=== PATIENT | female | born 1980 | race African-American/Black ===

== ENCOUNTER 2017-09-27 17:33 | Emergency (ER) | payer MEDICARE, MEDICAID ==
[~2017-09-27] VITALS: Ht 160 cm; Wt 49.9 kg
[~2017-09-27 17:33] MED LIST: ACETAMINOPHEN-1 EAC1 ORAL; ATIVAN1 MG ORAL; BACLOFEN10 MG ORAL; BUSPIRONE HCL15 MG ORAL; ESCITALOPRAM OX20 MG ORAL; KEPPRA500 MG ORAL; LEXAPRO20 MG ORAL; LYRICA25 MG ORAL; MAGNESIUM OXID400 M1 ORAL; METFORMIN HCL500 M1 ORAL; SERTRALINE HCL25 MG ORAL; VIMPAT200 MG PO; VITAMIN B-2100 MG PO; ZONEGRAN100 MG ORAL
[2017-09-27 17:50] VITALS: BP 112/66
[2017-09-27] MEDS ORDERED: Albuterol/Ipratropium 3ml neb HHN ONE (18:30)
[2017-09-27] MEDS ORDERED: LORazepam Inj 2mg/ml 1ml IV ONE (18:30)
[2017-09-27 18:31] LABS: BASOPHILS % (AUTO) 0.9 % (0.0-2.0); EOSINOPHILS % (AUTO) 0.9 % (0.0-3.0); HEMATOCRIT 42.4 % (37.0-47.0); HEMOGLOBIN 13.9 G/DL (12.0-16.0); LYMPHOCYTES % (AUTO) 37.5 % (20.0-45.0); MEAN CORPUSCULAR VOLUME 92 FL (80-99); MONOCYTES % (AUTO) 7.7 % (1.0-10.0); PLATELET COUNT 313 K/UL (150-450); RED BLOOD COUNT 4.62 M/UL (4.20-5.40); RED CELL DISTRIBUTION WIDTH 11.5 % (11.6-14.8); WHITE BLOOD COUNT 10.9 K/UL (4.8-10.8)
[2017-09-27] MEDS ORDERED: Tubing IV Cassette IV ONE (18:39)
[2017-09-27 18:40] LABS: ANION GAP 16 mmol/L (5-15); BLOOD UREA NITROGEN 10 mg/dL (7-18); CALCIUM 9.5 MG/DL (8.5-10.1); CARBON DIOXIDE 22 MMOL/L (21-32); CHLORIDE 105 MMOL/L (98-107); CREATININE 1.2 MG/DL (0.55-1.30); POTASSIUM 3.6 MMOL/L (3.5-5.1); SODIUM 143 MMOL/L (136-145)
[2017-09-27 18:45] LABS: ALANINE AMINOTRANSFERASE 14 U/L (12-78); ALBUMIN 3.8 G/DL (3.4-5.0); ALKALINE PHOSPHATASE 68 U/L (46-116); ASPARTATE AMINO TRANSFERASE 10 U/L (15-37); BILIRUBIN,TOTAL 0.3 MG/DL (0.2-1.0)
[2017-09-27 19:05] VITALS: BP 120/68
[2017-09-27] MEDS ORDERED: VIMPAT50 MG PO (19:07)
[2017-09-27] MEDS ORDERED: OMEGA 3 1,0001 EACH PO (19:08)
[2017-09-27] MEDS ORDERED: APTIOM200 MG PO (19:10)
[2017-09-27] MEDS ORDERED: APTIOM400 MG PO (19:10)
[2017-09-27] MEDS ORDERED: GLIPIZIDE5 MG ORAL (19:12)
[2017-09-27] MEDS ORDERED: BENAZEPRIL HCL5 MG ORAL (19:13)
[2017-09-27] MEDS ORDERED: ARTIFICIAL TEAR15 M2 OP (19:16)
[2017-09-27] MEDS ORDERED: ATIVAN1 MG ORAL ×2 (19:19→20:29)
[2017-09-27] MEDS ORDERED: ADULT WAL-100 MG/5 M ORAL (20:29)
[2017-09-27 20:31] LABS: APPEARANCE,URINE SLIGHTLY CLOUDY; BILIRUBIN, URINE NEGATIVE (NEGATIVE); COLOR,URINE PALE YELLOW; GLUCOSE, URINE (UA) NEGATIVE (NEGATIVE); KETONES,URINE 1+ (NEGATIVE); LEUKOCYTE ESTERASE ,URINE 3+ (NEGATIVE); NITRITE,URINE NEGATIVE (NEGATIVE); PH,URINE 5 (4.5-8.0); PROTEIN,URINE 2+ (NEGATIVE); UROBILINOGEN,URINE NORMAL MG/DL (0.0-1.0)
[2017-09-27 21:07] VITALS: BP_SYST 113; BP_SYST 120; BP_DIAS 68; BP_DIAS 69
--- NOTE | 2017-09-28 13:05 | Emergency Room Report ---
History of Present Illness General Chief Complaint: Upper Respiratory Illness Source: Patient, Medical Record Present Illness HPI Patient's a 37-year-old female who presented after increased nasal congestion cough. The patient gradual onset of symptoms over the past few days. Patient had been taking [id number] cough medications. Patient prior history of seizure disorder. Patient was noted to have a nonproductive cough. She had been taking Vimpat for seizure. The patient's mother was also sick with similar illness. Allergies: Coded Allergies: No Known Allergies (Unverified , 11/29/14) Patient History Past Medical History: seizures Last Menstrual Period: on depo shot Reviewed Nursing Documentation: PMH: Agreed, PSxH: Agreed Nursing Documentation-PMH Past Medical History: No History, Except For Hx Pacemaker: Yes - FOR SEIZURE Hx Diabetes: Yes Hx Seizures: Yes Review of Systems All Other Systems: negative except mentioned in HPI Physical Exam Vital Signs Date Time Temp Pulse Resp B/P (MAP) Pulse Ox O2 Delivery O2 Flow Rate FiO2 09/27/17 17:50 98.1 101 18 112/66 97 Room Air Sp02 EP Interpretation: reviewed, normal General Appearance: normal inspection, well appearing, no apparent distress, alert, GCS 15 Head: atraumatic ENT: normal ENT inspection, hearing grossly normal, normal voice Neck: normal inspection, full range of motion, supple, no bony tend Respiratory: normal inspection, lungs clear, normal breath sounds, no respiratory distress, no retraction, no wheezing Cardiovascular #1: regular rate, rhythm, no edema Gastrointestinal: normal inspection, normal bowel sounds, non tender, soft, no guarding, no hernia Genitourinary: no CVA tenderness Musculoskeletal: normal inspection, back normal, normal range of motion Neurologic: normal inspection, alert, oriented x3, responsive, inlayer III-XII nml as tested, speech normal Psychiatric: normal inspection, judgement/insight normal, mood/affect normal Skin: normal inspection, normal color, no rash Medical Decision Making Diagnostic Impression: Primary Impression: Seizure disorder Additional Impression: Upper respiratory infection ER Course Patient present for cough. Differential diagnosis included but was not limited to bronchitis, pneumonia, pulmonary embolism, pericarditis, asthma, foreign body. Patient presented for cough however during the initial evaluation she began having a tonic-clonic seizure. Patient was given IV Ativan. The patient notes history of seizure disorder. Laboratory testing was ordered. Patient was given IV fluids. The patient improvement in her mental status after postictal time. The patient is given prescription for cough medication to laboratory studies were unremarkable . The patient is advised to follow up with primary care doctor in 1-2 days. Patient is advised to return if any worsening condition or if any changes in status that are concerning. This report is dictated with [employer] biomass power plant superintendent software which may occasionally lead to discrepancies related to use of this software. Labs Test 09/27/17 18:10 09/27/17 20:10 White Blood Count 10.9 K/UL (4.8-10.8) Red Blood Count 4.62 M/UL (4.20-5.40) Hemoglobin 13.9 G/DL (12.0-16.0) Hematocrit 42.4 % (37.0-47.0) Mean Corpuscular Volume 92 FL (80-99) Mean Corpuscular Hemoglobin 30.0 PG (27.0-31.0) Mean Corpuscular Hemoglobin Concent 32.8 G/DL (32.0-36.0) Red Cell Distribution Width 11.5 % (11.6-14.8) Platelet Count 313 K/UL (150-450) Mean Platelet Volume 5.7 FL (6.5-10.1) Neutrophils (%) (Auto) 53.0 % (45.0-75.0) Lymphocytes (%) (Auto) 37.5 % (20.0-45.0) Monocytes (%) (Auto) 7.7 % (1.0-10.0) Eosinophils (%) (Auto) 0.9 % (0.0-3.0) Basophils (%) (Auto) 0.9 % (0.0-2.0) Sodium Level 143 MMOL/L (136-145) Potassium Level 3.6 MMOL/L (3.5-5.1) Chloride Level 105 MMOL/L (98-107) Carbon Dioxide Level 22 MMOL/L (21-32) Anion Gap 16 mmol/L (5-15) Blood Urea Nitrogen 10 mg/dL (7-18) Creatinine 1.2 MG/DL (0.55-1.30) Estimat Glomerular Filtration Rate > 60 mL/min (>60) Glucose Level 144 MG/DL (74-106) Calcium Level 9.5 MG/DL (8.5-10.1) Total Bilirubin 0.3 MG/DL (0.2-1.0) Aspartate Amino Transf (AST/SGOT) 10 U/L (15-37) Alanine Aminotransferase (ALT/SGPT) 14 U/L (12-78) Alkaline Phosphatase 68 U/L (46-116) Total Protein 7.6 G/DL (6.4-8.2) Albumin 3.8 G/DL (3.4-5.0) Globulin 3.8 g/dL Albumin/Globulin Ratio 1.0 (1.0-2.7) Urine Color Pale yellow Urine Appearance Slightly cloudy Urine pH 5 (4.5-8.0) Urine Specific [place] 1.025 (1.005-1.035) Urine Protein 2+ (NEGATIVE) Urine Glucose (UA) Negative (NEGATIVE) Urine Ketones 1+ (NEGATIVE) Urine Occult Blood Negative (NEGATIVE) Urine Nitrite Negative (NEGATIVE) Urine Bilirubin Negative (NEGATIVE) Urine Urobilinogen Normal MG/DL (0.0-1.0) Urine Leukocyte Esterase 3+ (NEGATIVE) Urine RBC 10-15 /HPF (0 - 2) Urine WBC 5-10 /HPF (0 - 2) Urine Squamous Epithelial Cells Many /LPF (NONE/OCC) Urine Bacteria Moderate /HPF (NONE) Urine HCG, Qualitative Negative Last Vital Signs Date Time Temp Pulse Resp B/P (MAP) Pulse Ox O2 Delivery O2 Flow Rate FiO2 09/27/17 21:07 98.1 101 18 120/68 100 Room Air 110 Status: improved Disposition: HOME, SELF-CARE Condition: Stable Scripts Lorazepam* (ATIVAN*) 1 Mg Tablet 1 MG ORAL BEDTIME, #10 TAB Prov: Alok Carballo 09/27/17 Guaifenesin* (ADULT WAL-TUSSIN*) 100 Mg/5 Ml Liquid 5 ML ORAL Q4H, #120 ML Prov: Alok Carballo 09/27/17 Referrals: NON PHYSICIAN (PCP) Patient Instructions: Upper Respiratory Infection, Adult, Seizure, Adult Alok Carballo Sep 28, 2017 13:05
== END 2017-09-27 21:11 | disposition home or self-care (01) ==
LOC: EMR 18:10
DX: J06.9 Acute upper respiratory infection, unspecified (principal); G40.909 Epilepsy, unspecified, not intractable, without status epilepticus; E11.9 Type 2 diabetes mellitus without complications
CPT/HCPCS: 36415; 80053; 81003; 81025; 82962; 85025; 87086; 94640; 94664; 96361; 96374; 99284; J7620

== ENCOUNTER 2018-04-23 11:08 | Emergency (ER) | payer MEDICARE, MEDICAID ==
[~2018-04-23] VITALS: Ht 162.6 cm; Wt 51.7 kg
[~2018-04-23 11:08] MED LIST changes: +ADULT WAL-100 MG/5 M ORAL; +APTIOM200 MG PO; +APTIOM400 MG PO; +ARTIFICIAL TEAR15 M2 OP; +BENAZEPRIL HCL5 MG ORAL; +GLIPIZIDE5 MG ORAL; +OMEGA 3 1,0001 EACH PO; +VIMPAT50 MG PO
[2018-04-23] MEDS ORDERED: BENAZEPRIL HCL10 MG ORAL (11:19)
--- NOTE | 2018-04-23 11:44 | Emergency Room Report ---
History of Present Illness General Chief Complaint: Upper Extremity Injury Source: Patient, Medical Record Present Illness HPI Patient present with complaints of pain to the left side of her neck and trapezius area with some radiation to the upper arm Patient had a seizure that was witnessed by family this happened 3 days ago Since and the patient was having pain to the left side of her trapezius and neck area And presents for further evaluation Reports that she had a heating pad on her left upper arm which led to an injury secondarily as well Denies any weakness with her left hand nitrocellulose maker Denies any chest pain or shortness of breath Allergies: Coded Allergies: No Known Allergies (Unverified , 11/29/14) Patient History Past Medical History: see triage record Pertinent Family History: none Last Menstrual Period: Depo shot Reviewed Nursing Documentation: PMH: Agreed; PSxH: Agreed Nursing Documentation-PMH Past Medical History: No History, Except For Hx Cardiac Problems: No Hx Hypertension: No Hx Pacemaker: Yes Hx Asthma: No Hx COPD: No Hx Diabetes: Yes Hx Cancer: No Hx Gastrointestinal Problems: No Hx Dialysis: No History Of Psychiatric Problem: No Hx Neurological Problems: No Hx Cerebrovascular Accident: No Hx Seizures: Yes Review of Systems All Other Systems: negative except mentioned in HPI Physical Exam Vital Signs Date Time Temp Pulse Resp B/P (MAP) Pulse Ox O2 Delivery O2 Flow Rate FiO2 04/23/18 11:13 98.4 79 14 108/74 95 Room Air 98.4 Sp02 EP Interpretation: reviewed, normal General Appearance: well appearing, no apparent distress Head: normocephalic, atraumatic Eyes: bilateral eye PERRL, bilateral eye EOMI ENT: hearing grossly normal, normal pharynx, TMs + canals normal, uvula midline Neck: full range of motion, supple, no meningismus, no bony tend - However patient did have some increased discomfort paracervical C3-4-5 on the left side , the trapezius was also mildly uncomfortable on mid point palpation, other - Cord palpated left anterior neck area into the clavicular region, likely from indwelling catheter Respiratory: lungs clear, normal breath sounds, no rhonchi, no respiratory distress, no retraction, no accessory muscle use Cardiovascular #1: normal peripheral pulses, regular rate, rhythm, no edema, no gallop, no JVD, no murmur Gastrointestinal: normal bowel sounds, non tender, soft, no mass, no organomegaly, non-distended, no guarding, no hernia, no pulsatile mass, no rebound Genitourinary: no CVA tenderness Musculoskeletal: other - As noted on the left trapezius region Neurologic: oriented x3, responsive, drying rack changer III-XII nml as tested, motor strength/ tone normal, sensory intact Psychiatric: mood/affect normal Skin: other - There was a nonspecific rash involving the left upper arm, patient and family reported that happened after placing heat pad on it from the pain Lymphatic: normal inspection, no adenopathy Medical Decision Making Diagnostic Impression: Primary Impression: Acute neck sprain ER Course Given the patient's reported trauma essentially seizure activity causing injury to the left side of the neck Imaging studies were obtained Patient was provided with pain medication Continues to feel better Patient does not show any signs of focal weakness And is otherwise stable for close outpatient follow-up Chest X-Ray Diagnostic Results Chest X-Ray Diagnostic Results : Chest X-Ray Ordered: Yes # of Views/Limited/Complete: 1 View Indication: Chest Pain EP Interpretation: Yes Interpretation: no consolidation, no effusion, no pneumothorax Impression: No acute disease Electronically Signed by: Ray Workman DO CT/MRI/US Diagnostic Results CT/MRI/US Diagnostic Results : Impression CT C-spine no acute disease Last Vital Signs Date Time Temp Pulse Resp B/P (MAP) Pulse Ox O2 Delivery O2 Flow Rate FiO2 04/23/18 11:13 98.4 79 14 108/74 95 Room Air 98.4 Status: improved Disposition: HOME, SELF-CARE Condition: Improved Scripts Methocarbamol* (ROBAXIN-750*) 750 Mg Tablet 750 MG PO TID, #21 TAB 0 Refills Prov: Ray Workman DO 04/23/18 Ibuprofen* (MOTRIN*) 600 Mg Tablet 600 MG ORAL Q8H PRN for For Pain, #20 TAB 0 Refills Prov: Ray Workman DO 04/23/18 Referrals: NOT CHOSEN IPA/MD,REFERRING (PCP) Additional Instructions: Patient is provided with the discharge instructions notified to follow up with primary doctor in the next 2-3 days otherwise return to the er with any worsening symptoms. Please note that this report is being documented using [employer] technology. This can lead to erroneous entry secondary to incorrect interpretation by the dictating instrument. Ray Workman DO Apr 23, 2018 11:44
--- NOTE | 2018-04-23 12:20 | Diagnostic Imaging Report ---
EXAM: XR Chest, 1 View CLINICAL HISTORY: PAIN TECHNIQUE: Frontal view of the chest. COMPARISON: No relevant prior studies available. FINDINGS: Lungs: No consolidation. Pleural space: Unremarkable. No pneumothorax. Heart: Unremarkable. No cardiomegaly. Mediastinum: Unremarkable. Bones/joints: No acute fracture. Tubes, lines and devices: Neurostimulator device overlying the left chest with lead extending to the left side of the neck. IMPRESSION: No acute findings.
--- NOTE | 2018-04-23 12:24 | Diagnostic Imaging Report ---
EXAM: CT Cervical Spine Without Intravenous Contrast CLINICAL HISTORY: TRAUMA TECHNIQUE: Axial computed tomography images of the cervical spine without intravenous contrast. CTDI is 0.25 + 10 mGy and DLP is 204 mGy-cm. One or more of the following dose reduction techniques were used: automated exposure control, adjustment of the mA and/or kV according to patient size, use of iterative reconstruction technique. COMPARISON: No relevant prior studies available. FINDINGS: Vertebrae: No fracture or malalignment. Discs/spinal canal/neural foramina: No acute process. Soft tissues: Unremarkable. Thyroid: Heterogeneous thyroid gland with small low attenuation foci, largest measuring approximately 6 mm. Tubes, lines and devices: Neurostimulator lead on the left side. IMPRESSION: No fracture or malalignment.
[2018-04-23] MEDS ORDERED: Methocarbamol 750mg tab ORAL ONE (12:30)
[2018-04-23] MEDS: Ketorolac 60mg Inj IM ONE ×2 (12:44→12:51)
[2018-04-23] MEDS ORDERED: IBUPROFEN600 MG ORAL (13:14)
[2018-04-23] MEDS ORDERED: ROBAXIN-750750 MG PO (13:14)
[2018-04-23 13:23] VITALS: BP 102/64
== END 2018-04-23 13:26 | disposition home or self-care (01) ==
LOC: EMR 11:34
DX: S13.9XXA Sprain of joints and ligaments of unspecified parts of neck, initial encounter (principal); X58.XXXA Exposure to other specified factors, initial encounter; Y93.89 Activity, other specified; Y92.9 Unspecified place or not applicable; E11.9 Type 2 diabetes mellitus without complications; G40.909 Epilepsy, unspecified, not intractable, without status epilepticus; Z95.0 Presence of cardiac pacemaker
CPT/HCPCS: 71045; 72125; 96372; 99284

== ENCOUNTER 2018-10-30 11:36 | Emergency (ER) | payer MEDICARE, MEDICAID ==
[~2018-10-30] VITALS: Ht 162.6 cm; Wt 49.9 kg
[~2018-10-30 11:36] MED LIST changes: +BENAZEPRIL HCL10 MG ORAL; +IBUPROFEN600 MG ORAL; +ROBAXIN-750750 MG PO
[2018-10-30 11:53] VITALS: BP 141/85
[2018-10-30] MEDS ORDERED: Ketorolac 30mg Inj IM ONE (12:15)
[2018-10-30] MEDS ORDERED: Tylenol #3 tab (300mg/30mg) ORAL ONE (12:15)
[2018-10-30] MEDS ORDERED: IBUPROFEN600 MG ORAL (12:17)
[2018-10-30] MEDS ORDERED: ACETAMINOPHEN-1 EAC1 ORAL (12:17)
--- NOTE | 2018-10-30 12:22 | Emergency Room Report ---
History of Present Illness General Chief Complaint: Pain Source: Patient Present Illness HPI The patient is a 38 old female presenting for left sided jaw pain. She states that this pain began after experiencing a seizure one week prior. She believes that she was clenching her jaw at the time. Pain has been continuous and is described as an 8 out of 10 dull ache. Pain does not radiate. Worse with touch and movement. She has not tried any pain medications yet for this. She states that she is able to chew. She denies any other symptoms including nausea , vomiting, fever, chills, sore throat, cough, ear pain, chest pain, shortness of breath Allergies: Coded Allergies: No Known Allergies (Unverified , 11/29/14) Patient History Past Medical History: see triage record, seizures Pertinent Family History: none Now: No - depo shot Reviewed Nursing Documentation: PMH: Agreed; PSxH: Agreed Nursing Documentation-PMH Past Medical History: No History, Except For Hx Cardiac Problems: No Hx Hypertension: No Hx Pacemaker: Yes Hx Asthma: No Hx COPD: No Hx Diabetes: Yes Hx Cancer: No Hx Gastrointestinal Problems: No Hx Dialysis: No Hx Neurological Problems: No Hx Cerebrovascular Accident: No Hx Seizures: Yes Review of Systems All Other Systems: negative except mentioned in HPI Physical Exam Vital Signs Date Time Temp Pulse Resp B/P (MAP) Pulse Ox O2 Delivery O2 Flow Rate FiO2 10/30/18 11:43 98.4 75 17 141/85 99 Room Air Sp02 EP Interpretation: reviewed, normal General Appearance: no apparent distress, alert, GCS 15, non-toxic Head: normocephalic, atraumatic Eyes: bilateral eye normal inspection, bilateral eye PERRL ENT: hearing grossly normal, normal pharynx, no angioedema, normal voice, uvula midline, other - TTP over the L TMJ. No deformity. Normal bite. Teeth aligned Neck: full range of motion, supple/symm/no masses, other - Scar to L side Musculoskeletal: back normal, gait/station normal, normal range of motion, non- tender Neurologic: alert, oriented x3, responsive, motor strength/tone normal, sensory intact, speech normal Psychiatric: judgement/insight normal, memory normal, mood/affect normal, no suicidal/homicidal ideation Skin: normal color, no rash, warm/dry, well hydrated Medical Decision Making PA Attestation Dr. Workman is my supervising physician. Patient management was discussed with my supervising physician Diagnostic Impression: Primary Impression: Temporomandibular joint (TMJ) pain Qualified Codes: M26.622 - Arthralgia of left temporomandibular joint ER Course The patient is a 38 old female presenting for left sided jaw pain. Differential diagnosis considered but not limited to: Muscle strain, TMJ syndrome, fracture, arthritis, among others PE: Afebrile. NAD TTP over the TMJ. No deformity. Mandible is aligned. Normal bite. Patient able to open mouth to 3 fingers in height. Patient is given IM Toradol and Tylenol 3 She is discharged with prescription for Motrin and Tylenol 3. She is given information for dentist. She is told to follow-up within a week. ER precautions given Last Vital Signs Date Time Temp Pulse Resp B/P (MAP) Pulse Ox O2 Delivery O2 Flow Rate FiO2 10/30/18 11:53 98.4 17 141/85 99 Room Air 10/30/18 11:43 75 Status: improved Disposition: HOME, SELF-CARE Condition: Improved Scripts Acetaminophen With Codeine (T#3) (TYLENOL #3 TAB*) Y Tab 1 TAB ORAL Q6HR PRN for For Pain, #10 TAB Prov: TERZIAN,NIURKA P.A. 10/30/18 Ibuprofen* (MOTRIN*) 600 Mg Tablet 600 MG ORAL Q8H PRN for For Pain, #30 TAB 0 Refills Prov: TERZIAN,NIUKRA P.A. 10/30/18 Referrals: [facility](age 2-12) - Orthodontic Clinic - Hours: Wed,Wed,, 8:15am and 1pm (new patient screening), Tues. 1pm. Emergency clinic Wednesday - Wednesday 8:30am and 1pm, Tues. 1pm. *Call to check if clinic is open; No appointment necessary for the first visit ( new patient screening), Arrive 15-30 minutes early as it is first come, first serve. [facility] INFO: New Patient Screening: Wed- 8am-1pm Wed- 9am -5pm and Wed 2pm-5pm Patient Instructions: Seizure, Adult, Temporomandibular Joint Syndrome Additional Instructions: I discussed my findings with the patient. All questions and concerns have been answered. Treatment and medication compliance have been addressed. I advised the patient that they need to follow up with both primary doctor and dentist within one week. Return to ER if symptoms worsen, new symptoms arise, or if needed for any reason. Patient verbalized understanding of discharge instructions. NIURKA DIAZ Oct 30, 2018 12:22
--- NOTE | 2018-10-30 12:25 | NUR ---
ED Nurse Note: Pt was seen due to jaw pain. Pt cleared by health care provider for discharge. DC instructions/prescription was given and explained to pt and verbalized understanding of teachings. All medical educator such as ID band removed. Pt is AAO x4, ambulatory and left with all personal belongings.
== END 2018-10-30 12:24 | disposition home or self-care (01) ==
LOC: EMR 11:55
DX: M26.622 Arthralgia of left temporomandibular joint (principal); E11.9 Type 2 diabetes mellitus without complications
CPT/HCPCS: 96372; 99283; J1885

== ENCOUNTER 2019-06-15 21:09 | Emergency (ER) | payer MEDICARE, MEDICAID ==
[~2019-06-15] VITALS: Ht 162.6 cm; Wt 54.0 kg
[2019-06-15 21:14] VITALS: BP 128/70
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
[2019-06-15] MEDS ORDERED: LORazepam Inj 2mg/ml 1ml IV ONE (21:30)
[2019-06-15 21:42] LABS: ANION GAP 17 mmol/L (5-15); BLOOD UREA NITROGEN 7 mg/dL (7-18); CALCIUM 9.3 MG/DL (8.5-10.1); CARBON DIOXIDE 19 MMOL/L (21-32); CHLORIDE 107 MMOL/L (98-107); CREATININE 1.2 MG/DL (0.55-1.30); POTASSIUM 3.4 MMOL/L (3.5-5.1); SODIUM 143 MMOL/L (136-145)
[2019-06-15 21:46] LABS: APPEARANCE,URINE CLEAR; BILIRUBIN, URINE NEGATIVE (NEGATIVE); COLOR,URINE PALE YELLOW; GLUCOSE, URINE (UA) NEGATIVE (NEGATIVE); KETONES,URINE NEGATIVE (NEGATIVE); LEUKOCYTE ESTERASE ,URINE 3+ (NEGATIVE); NITRITE,URINE NEGATIVE (NEGATIVE); PH,URINE 5 (4.5-8.0); PROTEIN,URINE NEGATIVE (NEGATIVE); UROBILINOGEN,URINE NORMAL MG/DL (0.0-1.0)
[2019-06-15 21:47] LABS: BASOPHILS % (AUTO) 1.8 % (0.0-2.0); EOSINOPHILS % (AUTO) 0.8 % (0.0-3.0); HEMATOCRIT 38.9 % (37.0-47.0); HEMOGLOBIN 13.4 G/DL (12.0-16.0); LYMPHOCYTES % (AUTO) 47.9 % (20.0-45.0); MEAN CORPUSCULAR VOLUME 87 FL (80-99); MONOCYTES % (AUTO) 6.3 % (1.0-10.0); NEUTROPHILS % (AUTO) 43.2 % (45.0-75.0); PLATELET COUNT 224 K/UL (150-450); RED BLOOD COUNT 4.45 M/UL (4.20-5.40); RED CELL DISTRIBUTION WIDTH 11.4 % (11.6-14.8); WHITE BLOOD COUNT 8.5 K/UL (4.8-10.8)
[2019-06-15 22:55] VITALS: BP 128/70
--- NOTE | 2019-06-15 22:55 | NUR ---
ER DISCHARGE NOTE: Patient is cleared to be discharged per ERMD, pt is aox4, on room air, with stable vital signs. pt was given dc and prescription instructions, pt was able to verbalize understanding, pt id band and iv site removed without complications. pt is able to ambulate with steady gait. pt took all belongings. Accompanied by mother and son
== END 2019-06-15 22:55 | disposition home or self-care (01) ==
LOC: EDBD 21:09 → EMR 21:40
DX: G40.909 Epilepsy, unspecified, not intractable, without status epilepticus (principal); Z95.0 Presence of cardiac pacemaker; E11.9 Type 2 diabetes mellitus without complications; V43.62XA Car passenger injured in collision with other type car in traffic accident, initial encounter; Y92.410 Unspecified street and highway as the place of occurrence of the external cause
CPT/HCPCS: 36415; 80048; 80307; 81003; 81025; 85025; 96361; 96374; 99284

== ENCOUNTER 2019-07-09 13:01 | Emergency (ER) | payer MEDICARE, MEDICAID ==
[~2019-07-09] VITALS: Ht 160 cm; Wt 63.5 kg
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
[2019-07-09] MEDS ORDERED: LORazepam Inj 2mg/ml 1ml IV ONE (13:15)
--- NOTE | 2019-07-09 13:21 | Emergency Room Report ---
History of Present Illness General Chief Complaint: Seizure Source: Patient, EMS Present Illness HPI Patient is a 39-year-old female brought in by EMS after increased shaking episodes. Patient had multiple episodes of shaking. As some of these were witnessed by EMS. She had prior history of seizure disorder. She is on multiple medications including some medications for diabetes. Blood sugar was noted to be normal by EMS. Patient was not noted to be incontinent. She had previously been on Vimpat as well as multiple other medications which predominantly are benzodiazepines. Allergies: Coded Allergies: No Known Allergies (Unverified , 11/29/14) Patient History Past Medical History: see triage record Now: No Reviewed Nursing Documentation: PMH: Agreed; PSxH: Agreed Nursing Documentation-PMH Past Medical History: No History, Except For Hx Hypertension: No Hx Pacemaker: Yes Hx Asthma: No Hx COPD: No Hx Diabetes: Yes Hx Cancer: No Hx Gastrointestinal Problems: No Hx Dialysis: No Hx Neurological Problems: No Hx Cerebrovascular Accident: No Hx Seizures: Yes Review of Systems All Other Systems: negative except mentioned in HPI Physical Exam Vital Signs Date Time Temp Pulse Resp B/P (MAP) Pulse Ox O2 Delivery O2 Flow Rate FiO2 07/09/19 13:05 98.4 87 18 127/80 (96) 100 Room Air Sp02 EP Interpretation: reviewed, normal General Appearance: normal inspection, alert, GCS 15 Head: atraumatic ENT: normal ENT inspection, hearing grossly normal, normal voice, other - no oral trauma noted Neck: normal inspection, full range of motion, supple, no bony tend Respiratory: normal inspection, lungs clear, normal breath sounds, no respiratory distress, no retraction, no wheezing Cardiovascular #1: regular rate, rhythm, no edema Gastrointestinal: normal inspection, normal bowel sounds, non tender, soft, no guarding, no hernia Genitourinary: no CVA tenderness Musculoskeletal: normal inspection, back normal, normal range of motion Neurologic: normal inspection, alert, responsive, outside solar sales consultant III-XII nml as tested, other - toes downgoing bilaterally Psychiatric: normal inspection, judgement/insight normal, mood/affect normal Medical Decision Making Diagnostic Impression: Primary Impression: Seizure disorder Additional Impression: Osteoma of nasal sinus ER Course Patient presented for possible seizure. Differential diagnosis include was not limited to status epilepticus, partial seizure, anxiety, hypoglycemic episode, overdose among others. Because of complexity of patient's case laboratory tests and imaging studies were ordered. EKG interpreted by me showed normal sinus rhythm with a rate of [address] or T wave changes. Patient was noted to have a nonfocal neurologic exam. There is no evidence of oral trauma. Laboratory testing was ordered to evaluate for possible acidosis. She was started on IV fluids. She did report having some headache.Patient was noted to have very brief postictal periods. Patient was noted to have a normal lactic acid level. CT imaging read by radiology showed sinus osteoma.Patient was noted to have episode of generalized movements which appear to be rotating her head left and right repetitively as well as lifting her left and right leg alternatively up-and-down which appears somewhat voluntary in nature. Patient was noted to have multiple episodes prior to laboratory testing and given the patient's normal lactic acid level this does not appear to be consistent with seizures. Patient was given medications for her headache.They do not appear as if they are tonic-clonic seizures. Patient does not have any evidence of cardiac arrhythmia or any change in vital signs to suggest syncope. Patient did not have any significant alterations in respirations or vital signs during this.Patient will be discharged home. Patient appears to be stable for outpatient management. Is to follow-up with a neurologist.Patient is to return if worse. Labs Test 07/09/19 13:45 White Blood Count 6.4 K/UL (4.8-10.8) Red Blood Count 3.84 M/UL (4.20-5.40) Hemoglobin 11.3 G/DL (12.0-16.0) Hematocrit 33.7 % (37.0-47.0) Mean Corpuscular Volume 88 FL (80-99) Mean Corpuscular Hemoglobin 29.3 PG (27.0-31.0) Mean Corpuscular Hemoglobin Concent 33.4 G/DL (32.0-36.0) Red Cell Distribution Width 11.6 % (11.6-14.8) Platelet Count 226 K/UL (150-450) Mean Platelet Volume 4.8 FL (6.5-10.1) Neutrophils (%) (Auto) 61.3 % (45.0-75.0) Lymphocytes (%) (Auto) 30.9 % (20.0-45.0) Monocytes (%) (Auto) 6.2 % (1.0-10.0) Eosinophils (%) (Auto) 0.5 % (0.0-3.0) Basophils (%) (Auto) 1.1 % (0.0-2.0) Sodium Level 135 MMOL/L (136-145) Potassium Level 4.0 MMOL/L (3.5-5.1) Chloride Level 104 MMOL/L (98-107) Carbon Dioxide Level 25 MMOL/L (21-32) Anion Gap 6 mmol/L (5-15) Blood Urea Nitrogen 11 mg/dL (7-18) Creatinine 0.9 MG/DL (0.55-1.30) Estimat Glomerular Filtration Rate > 60 mL/min (>60) Glucose Level 92 MG/DL (74-106) Lactic Acid Level 1.80 mmol/L (0.4-2.0) Calcium Level 7.8 MG/DL (8.5-10.1) Total Bilirubin 0.2 MG/DL (0.2-1.0) Aspartate Amino Transf (AST/SGOT) 14 U/L (15-37) Alanine Aminotransferase (ALT/SGPT) 16 U/L (12-78) Alkaline Phosphatase 60 U/L (46-116) Troponin I 0.004 ng/mL (0.000-0.056) Total Protein 5.9 G/DL (6.4-8.2) Albumin 3.2 G/DL (3.4-5.0) Globulin 2.7 g/dL Albumin/Globulin Ratio 1.2 (1.0-2.7) EKG Diagnostic Results Rate: normal - 87 Rhythm: NSR ST Segments: no acute changes Last Vital Signs Date Time Temp Pulse Resp B/P (MAP) Pulse Ox O2 Delivery O2 Flow Rate FiO2 07/09/19 13:05 98.4 87 18 127/80 (96) 100 Room Air Status: improved Disposition: HOME, SELF-CARE Condition: Stable Scripts Ibuprofen* (MOTRIN*) 600 Mg Tablet 600 MG ORAL Q8H PRN for For Pain, #30 TAB 0 Refills Prov: Alok Carballo MD 07/09/19 Alok Carballo MD Jul 09, 2019 13:21
[2019-07-09] MEDS ORDERED: Acetaminophen 500mg (ES) tab ORAL ONE (13:30)
--- NOTE | 2019-07-09 13:30 | NUR ---
ED Nurse Note: Late entry: PT observe having a episode, MD Haris was present and at bedside during episode. VS stable, no respiratory distress noted on RA.
[2019-07-09 13:47] VITALS: BP 127/80
[2019-07-09 14:07] LABS: BASOPHILS % (AUTO) 1.1 % (0.0-2.0); EOSINOPHILS % (AUTO) 0.5 % (0.0-3.0); HEMATOCRIT 33.7 % (37.0-47.0); HEMOGLOBIN 11.3 G/DL (12.0-16.0); LYMPHOCYTES % (AUTO) 30.9 % (20.0-45.0); MEAN CORPUSCULAR VOLUME 88 FL (80-99); MONOCYTES % (AUTO) 6.2 % (1.0-10.0); NEUTROPHILS % (AUTO) 61.3 % (45.0-75.0); PLATELET COUNT 226 K/UL (150-450); RED BLOOD COUNT 3.84 M/UL (4.20-5.40); RED CELL DISTRIBUTION WIDTH 11.6 % (11.6-14.8); WHITE BLOOD COUNT 6.4 K/UL (4.8-10.8)
--- NOTE | 2019-07-09 14:19 | Diagnostic Imaging Report ---
Indication: Seizure Technique: Contiguous 5 mm thick transaxial imaging of the head obtained in a Siemens Sensation [address] scanner. Soft tissue and bone windows generated. Automatic Exposure Control was utilized. Total Dose length Product (DLP): [address] Dose Index Volume (CTDIvol): 62.7 mGy Comparison: none Findings: The size and configuration of the cortical sulci, basal cisterns, and ventricles are within normal limits for age. There is no mass effect, midline shift, or edema identified. There is no evidence of acute hemorrhage or abnormal intra-axial or extra-axial fluid collections. The bones and soft tissues are unremarkable. Impression: No mass effect, edema or acute bleed. [facility] has communicated the preliminary results to the Emergency Department. Their findings are largely concordant with this report. The CT scanner at [facility] is accredited by the [employer] and the scans are performed using dose optimization techniques as appropriate to a performed exam including Automatic Exposure control.
[2019-07-09 14:27] LABS: ANION GAP 6 mmol/L (5-15); BLOOD UREA NITROGEN 11 mg/dL (7-18); CALCIUM 7.8 MG/DL (8.5-10.1); CARBON DIOXIDE 25 MMOL/L (21-32); CHLORIDE 104 MMOL/L (98-107); CREATININE 0.9 MG/DL (0.55-1.30); SODIUM 135 MMOL/L (136-145)
[2019-07-09 14:31] LABS: ALANINE AMINOTRANSFERASE 16 U/L (12-78); ALBUMIN 3.2 G/DL (3.4-5.0); ALBUMIN/GLOBULIN RATIO 1.2 (1.0-2.7); ALKALINE PHOSPHATASE 60 U/L (46-116); ASPARTATE AMINO TRANSFERASE 14 U/L (15-37); BILIRUBIN,TOTAL 0.2 MG/DL (0.2-1.0)
[2019-07-09] MEDS ORDERED: Ketorolac 30mg Inj IV ONE (15:00)
[2019-07-09 15:11] LABS: BILIRUBIN, URINE NEGATIVE (NEGATIVE); COLOR,URINE PALE YELLOW; GLUCOSE, URINE (UA) NEGATIVE (NEGATIVE); KETONES,URINE NEGATIVE (NEGATIVE); LEUKOCYTE ESTERASE ,URINE 2+ (NEGATIVE); NITRITE,URINE NEGATIVE (NEGATIVE); PH,URINE 6 (4.5-8.0); PROTEIN,URINE 1+ (NEGATIVE); UROBILINOGEN,URINE NORMAL MG/DL (0.0-1.0)
[2019-07-09] MEDS ORDERED: IBUPROFEN600 MG ORAL (15:11)
[2019-07-09 15:17] LABS: APPEARANCE,URINE SLIGHTLY CLOUDY
[2019-07-09 16:06] VITALS: BP 111/64
[2019-07-09 16:07] VITALS: BP 111/64
--- NOTE | 2019-07-09 16:15 | NUR ---
ER DISCHARGE NOTE: Patient is cleared to be discharged per ERMD, pt is aox4, on room air, with stable vital signs. pt was given dc and prescription instructions, pt was able to verbalize understanding, pt id band and iv site removed without complications. pt is able to ambulate with steady gait. pt took all belongings.ED
== END 2019-07-09 16:07 | disposition home or self-care (01) ==
LOC: EDBD 13:01 → EMR 13:55
DX: G40.909 Epilepsy, unspecified, not intractable, without status epilepticus (principal); D16.4 Benign neoplasm of bones of skull and face; E11.9 Type 2 diabetes mellitus without complications
CPT/HCPCS: 36415; 70450; 80053; 80307; 81003; 81025; 83605; 84484; 84703; 85025; 87086; 93005; 96361; 96374; 96375; 99284; J1885; J7030

== ENCOUNTER 2019-08-12 15:14 | Emergency (ER) | payer MEDICARE, MEDICAID ==
[~2019-08-12] VITALS: Ht 160 cm; Wt 59.0 kg
--- NOTE | 2019-08-12 15:20 | NUR ---
ED Nurse Note: Pt arrived to ED d/t Nausea, and hx of coughing of bood this morning. Placed on bed and gown, hooked to awake overnight monitor. Placed bed on low position. Will continue to monitor.
[2019-08-12] MEDS ORDERED: CLOBAZAM10 MG PO (15:28)
[2019-08-12] MEDS ORDERED: VIMPAT200 MG PO (15:28)
[2019-08-12] MEDS ORDERED: ATORVASTATIN CA20 MG ORAL (15:28)
[2019-08-12] MEDS ORDERED: VASCEPA1 GM PO (15:28)
[2019-08-12] MEDS ORDERED: APTIOM400 MG PO ×2 (15:28→15:29)
[2019-08-12] MEDS ORDERED: ATIVAN1 MG ORAL (15:28)
[2019-08-12] MEDS ORDERED: LORazepam Inj 2mg/ml 1ml IV ONE (15:30)
--- NOTE | 2019-08-12 15:30 | NUR ---
ED Nurse Note: Established IV line on RT AC with 20G, intact and patent. Blood specimen collected, sent to labs.
[2019-08-12] MEDS ORDERED: VIMPAT50 MG PO (15:31)
--- NOTE | 2019-08-12 15:37 | Emergency Room Report ---
History of Present Illness General Chief Complaint: Upper Respiratory Illness Source: Patient, Family Member Present Illness HPI Patient presents after an episode of coughing up blood earlier today. She denies any pain associated with that. She feels nauseated. She denies fevers or chills. She has a history of seizures but denies having a recent seizure in the last 24 to 48 hours. There is no tongue trauma. Her last seizure was on Wednesday. Her seizures are stress related. The patient is unaware of increased stress at this time although mom feels that she needs to get a dose of Ativan. She denies melena. She is on Vimpat and Aptiom . She is uncertain when her last menstruation was. She alleges that she is taking her all of her medications as prescribed. She has never had this problem before. She is nauseated but has no vomiting. No sore throat, chest pain, palpitations, diarrhea, dysuria, abdominal pain, shortness of breath, joint pain, rashes, visual changes, dizziness, headache. Patient on Glipizide and Metformin. Allergies: Coded Allergies: No Known Allergies (Unverified , 11/29/14) Patient History Past Medical History: see triage record Past Surgical History: other - implanted brain stimulator Social History: Denies: smoking, alcohol use, drug use Social History Narrative Here with her mother Now: No - PT ON DEPO PROVERA Reviewed Nursing Documentation: PMH: Agreed; PSxH: Agreed Nursing Documentation-PM Past Medical History: No History, Except For Hx Hypertension: No Hx Pacemaker: Yes Hx Asthma: No Hx COPD: No Hx Diabetes: Yes Hx Cancer: No Hx Gastrointestinal Problems: No Hx Dialysis: No Hx Neurological Problems: No Hx Cerebrovascular Accident: No Hx Seizures: Yes Review of Systems All Other Systems: negative except mentioned in HPI Physical Exam Vital Signs Date Time Temp Pulse Resp B/P (MAP) Pulse Ox O2 Delivery O2 Flow Rate FiO2 08/12/19 15:16 98.2 65 22 155/105 (122) 100 Room Air Sp02 EP Interpretation: reviewed, normal General Appearance: well appearing, no apparent distress - Anxious, GCS 15 Head: normocephalic Eyes: bilateral eye normal inspection, bilateral eye PERRL, bilateral eye EOMI ENT: moist mucus membranes - No lingual trauma, brown coating on the tongue Neck: supple Respiratory: lungs clear, normal breath sounds Cardiovascular #1: regular rate, rhythm Cardiovascular #2: 2+ radial (R) Gastrointestinal: normal inspection, normal bowel sounds, non tender, no mass, non-distended Musculoskeletal: back normal, normal range of motion, gait/station normal Neurologic: alert, oriented x3, grossly normal Psychiatric: anxious Skin: no rash, warm/dry Medical Decision Making Diagnostic Impression: Primary Impression: Alleged hemoptysis Additional Impressions: UTI (urinary tract infection) Qualified Codes: N30.00 - Acute cystitis without hematuria Seizures Nausea Diabetes Qualified Codes: E11.9 - Type 2 diabetes mellitus without complications ER Course Patient presents with alleged coughing up blood. Differential includes hemoptysis, tuberculosis, vomiting blood, non-witnessed seizure, bleeding disorder, pneumonia, bronchitis amongst others. The patient is anxious at this time and has a history of stress-related seizures. Evaluation with EKG, chest x -ray and labs. Carbamazepine level will be checked. The patient will be treated with dose of Ativan. Complex patient. Accu-Chek 62. This is lower limit of normal. D50 water ordered. Labs drawn before D50W given. . EKG with normal sinus rhythm and normal EKG rate 61. CXR clear. CBC normal. H/H slightly low (higher than last). Glucose 92 (before D50W). Carbamazepine = 0 ( Aptiom not metabolized to this). Pyuria. Patient improved after treatment with Ativan. Repeat glucose normal. Macrobid begun. Discussed findings with patient and mother. No more evidence of coughing or vomiting blood. Patient stable for outpatient observation and treatment. Laboratory Tests Test 08/12/19 15:40 08/12/19 16:40 White Blood Count 7.3 K/UL (4.8-10.8) Red Blood Count 4.13 M/UL (4.20-5.40) L Hemoglobin 12.5 G/DL (12.0-16.0) Hematocrit 34.3 % (37.0-47.0) L Mean Corpuscular Volume 83 FL (80-99) Mean Corpuscular Hemoglobin 30.2 PG (27.0-31.0) Mean Corpuscular Hemoglobin Concent 36.3 G/DL (32.0-36.0) H Red Cell Distribution Width 10.3 % (11.6-14.8) L Platelet Count 227 K/UL (150-450) Mean Platelet Volume 4.9 FL (6.5-10.1) L Neutrophils (%) (Auto) 59.1 % (45.0-75.0) Lymphocytes (%) (Auto) 35.0 % (20.0-45.0) Monocytes (%) (Auto) 3.8 % (1.0-10.0) Eosinophils (%) (Auto) 0.4 % (0.0-3.0) Basophils (%) (Auto) 1.7 % (0.0-2.0) Prothrombin Time 10.7 SEC (9.30-11.50) Prothrombin Time INR 1.0 (0.9-1.1) PTT 30 SEC (23-33) Sodium Level 130 MMOL/L (136-145) L Potassium Level 3.5 MMOL/L (3.5-5.1) Chloride Level 96 MMOL/L (98-107) L Carbon Dioxide Level 24 MMOL/L (21-32) Anion Gap 10 mmol/L (5-15) Blood Urea Nitrogen 6 mg/dL (7-18) L Creatinine 0.8 MG/DL (0.55-1.30) Estimate Glomerular Filtration Rate > 60 mL/min (>60) Glucose Level 92 MG/DL (74-106) Lactic Acid Level 1.80 mmol/L (0.4-2.0) Calcium Level 9.1 MG/DL (8.5-10.1) Total Bilirubin 0.5 MG/DL (0.2-1.0) Aspartate Amino Transferase (AST) 15 U/L (15-37) Alanine Aminotransferase (ALT) 17 U/L (12-78) Alkaline Phosphatase 67 U/L (46-116) Total Creatine Kinase 162 U/L (26-308) Total Protein 7.2 G/DL (6.4-8.2) Albumin 3.8 G/DL (3.4-5.0) Globulin 3.4 g/dL Albumin/Globulin Ratio 1.1 (1.0-2.7) Carbamazepine (Tegretol) Level < 0.5 ug/mL (4.0-12.0) L Urine Color Pale yellow Urine Appearance Clear Urine pH 7 (4.5-8.0) Urine Specific [place] 1.005 (1.005-1.035) Urine Protein Negative (NEGATIVE) Urine Glucose (UA) Negative (NEGATIVE) Urine Ketones Negative (NEGATIVE) Urine Blood Negative (NEGATIVE) Urine Nitrite Negative (NEGATIVE) Urine Bilirubin Negative (NEGATIVE) Urine Urobilinogen Normal MG/DL (0.0-1.0) Urine Leukocyte Esterase 3+ (NEGATIVE) H Urine RBC 5-10 /HPF (0 - 2) H Urine WBC 5-10 /HPF (0 - 2) H Urine Squamous Epithelial Cells Few /LPF (NONE/OCC) Urine Bacteria Few /HPF (NONE) Microbiology Date/Time Source Procedure Growth Status 08/12/19 15:40 Nasal Nares - Final Complete 08/12/19 15:40 Nasal Nares - Final Complete EKG Diagnostic Results Rate: normal Rhythm: NSR ST Segments: no acute changes Rhythm Strip Diag. Results EP Interpretation: yes Rhythm: NSR, no PVC's, no ectopy Chest X-Ray Diagnostic Results Chest X-Ray Diagnostic Results : Chest X-Ray Ordered: Yes # of Views/Limited/Complete: 1 View Indication: Other EP Interpretation: Yes Interpretation: no consolidation, no effusion, no pneumothorax, other - ventricular stimulator (seizure) Impression: No acute disease Electronically Signed by: Electronically signed by Fahad Warner MD Last Vital Signs Date Time Temp Pulse Resp B/P (MAP) Pulse Ox O2 Delivery O2 Flow Rate FiO2 08/12/19 19:11 98.6 73 16 130/84 99 Room Air Status: improved Disposition: HOME, SELF-CARE Condition: Improved Scripts Nitrofurantoin Monohyd/M-Cryst* (MACROBID 100 MG*) 100 Mg Capsule 100 MG ORAL EVERY 12 HOURS, #14 CAP Prov: Fahad Warner MD 08/12/19 Ondansetron Odt* (ZOFRAN ODT*) 4 Mg Tab.rapdis 4 MG BC EVERY 8 HOURS, #6 TAB 0 Refills Prov: Fahad Warner MD 08/12/19 Fahad Warner MD Aug 12, 2019 15:37
--- NOTE | 2019-08-12 16:00 | NUR ---
ED Nurse Note: Pt able to urinate; specimen collected, sent to labs. Started on IV hydration on site, intact, patent and infusing well. Pt still on stable condition; VSS; no signs of respiratory distress.
[2019-08-12 16:07] LABS: BASOPHILS % (AUTO) 1.7 % (0.0-2.0); EOSINOPHILS % (AUTO) 0.4 % (0.0-3.0); HEMATOCRIT 34.3 % (37.0-47.0); HEMOGLOBIN 12.5 G/DL (12.0-16.0); MEAN CORPUSCULAR VOLUME 83 FL (80-99); MONOCYTES % (AUTO) 3.8 % (1.0-10.0); NEUTROPHILS % (AUTO) 59.1 % (45.0-75.0); PLATELET COUNT 227 K/UL (150-450); RED BLOOD COUNT 4.13 M/UL (4.20-5.40); RED CELL DISTRIBUTION WIDTH 10.3 % (11.6-14.8); WHITE BLOOD COUNT 7.3 K/UL (4.8-10.8)
[2019-08-12 16:12] LABS: ANION GAP 10 mmol/L (5-15); BLOOD UREA NITROGEN 6 mg/dL (7-18); CALCIUM 9.1 MG/DL (8.5-10.1); CARBON DIOXIDE 24 MMOL/L (21-32); CHLORIDE 96 MMOL/L (98-107); CREATININE 0.8 MG/DL (0.55-1.30); POTASSIUM 3.5 MMOL/L (3.5-5.1); SODIUM 130 MMOL/L (136-145)
[2019-08-12 16:16] LABS: ALANINE AMINOTRANSFERASE 17 U/L (12-78); ALBUMIN 3.8 G/DL (3.4-5.0); ALBUMIN/GLOBULIN RATIO 1.1 (1.0-2.7); ALKALINE PHOSPHATASE 67 U/L (46-116); ASPARTATE AMINO TRANSFERASE 15 U/L (15-37); BILIRUBIN,TOTAL 0.5 MG/DL (0.2-1.0); CREATINE KINASE 162 U/L (26-308)
[2019-08-12 16:48] VITALS: BP 136/95
[2019-08-12 16:51] LABS: APPEARANCE,URINE CLEAR; BILIRUBIN, URINE NEGATIVE (NEGATIVE); COLOR,URINE PALE YELLOW; GLUCOSE, URINE (UA) NEGATIVE (NEGATIVE); KETONES,URINE NEGATIVE (NEGATIVE); LEUKOCYTE ESTERASE ,URINE 3+ (NEGATIVE); NITRITE,URINE NEGATIVE (NEGATIVE); PH,URINE 7 (4.5-8.0); PROTEIN,URINE NEGATIVE (NEGATIVE); UROBILINOGEN,URINE NORMAL MG/DL (0.0-1.0)
--- NOTE | 2019-08-12 18:18 | Diagnostic Imaging Report ---
EXAM: XR Chest, 1 View CLINICAL HISTORY: COUGH TECHNIQUE: Frontal view of the chest. COMPARISON: No relevant prior studies available. FINDINGS: Lungs: Reduced lung volumes and accentuation of markings. No confluent consolidation. Pleural space: Unremarkable. No pneumothorax. Heart: Unremarkable. No cardiomegaly. Mediastinum: Unremarkable. Bones/joints: No acute fracture. Tubes, lines and devices: Neurostimulator device with lead extending to the left side of the neck. IMPRESSION: Reduced lung volumes and accentuation of markings. No confluent consolidation.
[2019-08-12] MEDS ORDERED: NITROFURANTOIN100 M2 ORAL (18:45)
[2019-08-12] MEDS ORDERED: ONDANSETRON ODT4 MG BC (18:45)
[2019-08-12 19:11] VITALS: BP 130/84
--- NOTE | 2019-08-12 19:15 | NUR ---
ER DISCHARGE NOTE: Pt is cleared to be discharged per ERMD, pt is aox4, on room air, with stable vital signs. pt was given dc and prescription instructions, pt was able to verbalize understanding, pt id band and iv site removed without complications. pt is able to ambulate with steady gait. pt took all belongings. Pt left accompanied by mother.
== END 2019-08-12 19:15 | disposition home or self-care (01) ==
LOC: EMR 15:50
DX: R04.2 Hemoptysis (principal); N30.00 Acute cystitis without hematuria; G40.909 Epilepsy, unspecified, not intractable, without status epilepticus; R11.0 Nausea; E11.9 Type 2 diabetes mellitus without complications; Z95.0 Presence of cardiac pacemaker
CPT/HCPCS: 36415; 71045; 80053; 80156; 81003; 82550; 82962; 83605; 85025; 85610; 85730; 86710; 93005; 96361; 96374; 96375; 99284; J2405; J7030

== ENCOUNTER 2019-08-16 17:23 | Emergency (ER) | payer MEDICARE, MEDICAID ==
[~2019-08-16] VITALS: Ht 160 cm; Wt 59.0 kg
[~2019-08-16 17:23] MED LIST changes: +ATORVASTATIN CA20 MG ORAL; +CLOBAZAM10 MG PO; +NITROFURANTOIN100 M2 ORAL; +ONDANSETRON ODT4 MG BC; +VASCEPA1 GM PO
[2019-08-16 17:35] VITALS: BP 140/96
--- NOTE | 2019-08-16 17:35 | NUR ---
ED Nurse Note: PT walked in to ED for C/O cough x 1 week. some time pt notice spots of blood in sputum. per pt, the cough gets so bad that pt feels nauseous during the cough spells. pt is alert x4.
--- NOTE | 2019-08-16 17:50 | NUR ---
Sameera avilez in EDM - 08/16/19 at 1757 by [facility] ED Nurse Note: Xray at bedside.
--- NOTE | 2019-08-16 17:53 | NUR ---
ED Nurse Note: x ray at bedside
--- NOTE | 2019-08-16 18:13 | Emergency Room Report ---
History of Present Illness General Chief Complaint: Flu Like Symptoms Source: Patient Present Illness HPI 39-year-old female with history of seizure here with mom complaining of cough with blood-tinged phlegm x1 day. Patient was seen at [facility] 4 days ago, was prescribed Zofran. A full work-up all within normal limits. Patient has not follow-up with primary care physician. Reports a one-day concern having generalized body ache, worsening cough, blood-tinged phlegm, and sore throat. Denies abdominal pain however complains of intermittent nausea. Reports that has not taken Zofran as it was prescribed to her. No chest pain, shortness of breath, palpitation, fever and chills, no associated symptoms. Allergies: Coded Allergies: No Known Allergies (Unverified , 11/29/14) Patient History Past Medical History: see triage record Past Surgical History: none Pertinent Family History: none Last Menstrual Period: 2015 Now: No Immunizations: UTD Reviewed Nursing Documentation: PMH: Agreed; PSxH: Agreed Nursing Documentation-PMH Past Medical History: No History, Except For Hx Hypertension: No Hx Pacemaker: Yes Hx Asthma: No Hx COPD: No Hx Diabetes: Yes Hx Cancer: No Hx Gastrointestinal Problems: No Hx Dialysis: No Hx Neurological Problems: No Hx Cerebrovascular Accident: No Hx Seizures: Yes Review of Systems All Other Systems: negative except mentioned in HPI Physical Exam Vital Signs Date Time Temp Pulse Resp B/P (MAP) Pulse Ox O2 Delivery O2 Flow Rate FiO2 08/16/19 17:30 98.6 63 19 144/95 (111) 96 Room Air Sp02 EP Interpretation: reviewed, normal General Appearance: no apparent distress, alert, GCS 15, non-toxic Head: normocephalic, atraumatic Eyes: bilateral eye normal inspection, bilateral eye PERRL ENT: hearing grossly normal, normal pharynx, no angioedema, normal voice Neck: full range of motion, supple, thyroid normal, no meningismus, no bony tend, supple/symm/no masses Respiratory: chest non-tender, lungs clear, normal breath sounds, no rhonchi, no retraction, no wheezing, speaking full sentences Cardiovascular #1: regular rate, rhythm, no edema, no murmur, normal capillary refill Gastrointestinal: non tender, soft, no mass, no peritonitis, no guarding, no hernia, no rebound Genitourinary: no CVA tenderness Musculoskeletal: back normal Neurologic: alert, motor strength/tone normal, oriented x3, sensory intact, responsive, speech normal Psychiatric: judgement/insight normal, memory normal, mood/affect normal, no suicidal/homicidal ideation Skin: no rash Lymphatic: no adenopathy Medical Decision Making PA Attestation All my diagnosis and treatment plans were reviewed ad discussed with my supervising physician Dr. Mahoney Diagnostic Impression: Primary Impression: Atypical pneumonia ER Course 39-year-old female with history of seizure here with mom complaining of cough with blood-tinged phlegm x1 day. Patient was seen at [facility] 4 days ago, was prescribed Zofran. A full work-up all within normal limits. Patient has not follow-up with primary care physician. Reports a one-day concern having generalized body ache, worsening cough, blood-tinged phlegm, and sore throat. Denies abdominal pain however complains of intermittent nausea. Reports that has not taken Zofran as it was prescribed to her. No chest pain, shortness of breath, palpitation, fever and chills, no associated symptoms. Ddx considered but are not limited to: strep pharyngitis, URI, tonsillitis, peritonsillar abscess, influneza Vital signs: are WNL, pt. is afebrile H&PE are most consistent with: Atypical pneumonia ORDERS: Tamiflu, Phenergan , azithromycin, cxr ED INTERVENTIONS: Zofran IM DISCHARGE: At this time pt. is stable for d/c to home. Will provide printed patient care instructions, and any necessary prescriptions. Care plan and follow up instructions have been discussed with the patient prior to discharge. 3 chest x-ray for comparison and no change was noted, follow-up with her primary care provider, take medication as directed, take medication as prescribed to you. Brat diet advised, increase oral hydration Chest X-Ray Diagnostic Results Chest X-Ray Diagnostic Results : Chest X-Ray Ordered: Yes # of Views/Limited/Complete: 1 View Indication: Other EP Interpretation: Yes PA Xray: Interpretation reviewed, by supervising MD, and agrees with findings. Interpretation: no consolidation, no effusion, no pneumothorax Impression: No acute disease Electronically Signed by: Bess Johnson PA-C Last Vital Signs Date Time Temp Pulse Resp B/P (MAP) Pulse Ox O2 Delivery O2 Flow Rate FiO2 12/18/19 17:35 70 19 Room Air 08/16/19 17:35 98.5 140/96 96 Disposition: HOME, SELF-CARE Condition: Stable Scripts Promethazine Hcl (PROMETHAZINE HCL*) 6.25 Mg/5 Ml Syrup 5 ML ORAL Q6H, #120 ML 0 Refills Prov: Bess Simon 08/16/19 Azithromycin* (ZITHROMAX*) 250 Mg Tablet 250 MG ORAL DAILY, #6 TAB 0 Refills Take two tables once daily for 1 day, then one tablet once daily for 4 days. Prov: Bess Simon 08/16/19 Oseltamivir Phosphate (Tamiflu) 75 Mg Capsule 75 MG ORAL TWICE A DAY for 5 Days, #10 CAP Prov: Bess Simon 08/16/19 Patient Instructions: Upper Respiratory Infection, Adult, [id number] Additional Instructions: Take medication as directed, follow-up with your primary care provider, if worsening symptoms return to the emergency room Bess Simon Aug 16, 2019 18:13
[2019-08-16] MEDS ORDERED: TAMIFLU75 MG ORAL (18:15)
[2019-08-16] MEDS ORDERED: PROMETHAZI6.25 MG/1 ORAL (18:15)
[2019-08-16] MEDS ORDERED: ZITHROMAX250 MG ORAL (18:15)
[2019-08-16 18:30] VITALS: BP 132/90
--- NOTE | 2019-08-16 18:30 | NUR ---
ER DISCHARGE NOTE: Patient is cleared to be discharged per ERMD, pt is aox4, on room air, with stable vital signs. pt was given dc and prescription instructions, pt was able to verbalize understanding, pt id band removed without complications. pt is able to ambulate with steady gait. pt took all belongings.
--- NOTE | 2019-08-17 19:08 | Diagnostic Imaging Report ---
Indication: Cough Technique: One view of the chest Comparison: 08/12/2019 Findings: Spinal stimulator power pack overlies left chest. Lungs and pleural spaces are clear. The heart size is normal. No significant change Impression: No acute process
== END 2019-08-16 18:30 | disposition home or self-care (01) ==
LOC: EMR 17:45
DX: J18.9 Pneumonia, unspecified organism (principal); Z95.0 Presence of cardiac pacemaker; E11.9 Type 2 diabetes mellitus without complications; G40.909 Epilepsy, unspecified, not intractable, without status epilepticus
CPT/HCPCS: 71045; 96372; 99283; J2405

== ENCOUNTER 2019-09-04 19:23 | Emergency (ER) | payer MEDICARE, MEDICAID ==
[~2019-09-04] VITALS: Ht 160 cm; Wt 61.2 kg
[~2019-09-04 19:23] MED LIST changes: +PROMETHAZI6.25 MG/1 ORAL; +TAMIFLU75 MG ORAL; +ZITHROMAX250 MG ORAL
[2019-09-04 19:50] VITALS: BP 133/95
--- NOTE | 2019-09-04 19:50 | NUR ---
ED Nurse Note: Pt walked into ED from home for c/o abdominal pain onset one week ago, worse today. Pt also reports nausea, no vomiting. Pt states abdominal pain is sharp in nature and radiates to her back. Pt is aaox4, no respiratory or cardiac distress noted. Will continue to monitor.
[2019-09-04] MEDS ORDERED: Morphine Sulfate 4mg/ml Inj (IV USE ONLY) IVP ONE (20:15)
[2019-09-04] MEDS ORDERED: Omnipaque-300 100ml vial INJ PRN (20:15)
[2019-09-04 20:43] LABS: APPEARANCE,URINE CLEAR; BILIRUBIN, URINE NEGATIVE (NEGATIVE); COLOR,URINE PALE YELLOW; GLUCOSE, URINE (UA) 1+ (NEGATIVE); KETONES,URINE NEGATIVE (NEGATIVE); LEUKOCYTE ESTERASE ,URINE 3+ (NEGATIVE); NITRITE,URINE NEGATIVE (NEGATIVE); PH,URINE 6 (4.5-8.0); PROTEIN,URINE NEGATIVE (NEGATIVE); UROBILINOGEN,URINE NORMAL MG/DL (0.0-1.0)
[2019-09-04 21:05] LABS: BASOPHILS % (AUTO) 1.6 % (0.0-2.0); EOSINOPHILS % (AUTO) 1.5 % (0.0-3.0); HEMATOCRIT 37.8 % (37.0-47.0); HEMOGLOBIN 12.8 G/DL (12.0-16.0); LYMPHOCYTES % (AUTO) 48.5 % (20.0-45.0); MEAN CORPUSCULAR VOLUME 88 FL (80-99); MONOCYTES % (AUTO) 10.2 % (1.0-10.0); NEUTROPHILS % (AUTO) 38.2 % (45.0-75.0); PLATELET COUNT 195 K/UL (150-450); RED BLOOD COUNT 4.27 M/UL (4.20-5.40); RED CELL DISTRIBUTION WIDTH 9.9 % (11.6-14.8); WHITE BLOOD COUNT 5.5 K/UL (4.8-10.8)
[2019-09-04 21:15] LABS: ANION GAP 8 mmol/L (5-15); BLOOD UREA NITROGEN 9 mg/dL (7-18); CALCIUM 8.2 MG/DL (8.5-10.1); CARBON DIOXIDE 21 MMOL/L (21-32); CHLORIDE 98 MMOL/L (98-107); CREATININE 0.9 MG/DL (0.55-1.30); POTASSIUM 4.2 MMOL/L (3.5-5.1); SODIUM 127 MMOL/L (136-145)
[2019-09-04 21:20] LABS: ALANINE AMINOTRANSFERASE 16 U/L (12-78); ALBUMIN 3.4 G/DL (3.4-5.0); ALKALINE PHOSPHATASE 70 U/L (46-116); ASPARTATE AMINO TRANSFERASE 16 U/L (15-37); BILIRUBIN,TOTAL 0.3 MG/DL (0.2-1.0)
--- NOTE | 2019-09-04 22:09 | Diagnostic Imaging Report ---
Clinical Indication: Abdominal pain, onset one week ago, worse today, nausea. Pain is sharp in nature, radiates to back Technique: No oral contrast utilized, per emergency room physician request IV administration nonionic contrast. Venous phase spiral acquisition obtained through the abdomen and pelvis. Multiplanar reconstructions were generated. Total dose length product 739 mGycm. CTDIvol(s) 13 mGy. Dose reduction achieved using automated exposure control Comparison: none Findings: The appendix is normal. There is considerable colonic stool. No small bowel distention. No evidence of colonic diverticulosis or diverticulitis. No free or loculated intraperitoneal gas. There is trace free pelvic fluid.. The liver, gallbladder, bile ducts, pancreas, spleen, adrenals, right kidney are unremarkable. The left kidney demonstrates a 5 mm intrarenal calculus. No ureteral calculi, hydronephrosis, or hydroureter. The bladder is unremarkable. No pelvic mass or adenopathy. Uterus and ovaries are unremarkable. The included lung bases demonstrate posterior dependent atelectatic changes. The bones are unremarkable. Impression: Nonobstructive left intrarenal calculus No other significant abnormality Trace free pelvic fluid, most likely physiologic This agrees with the preliminary interpretation provided overnight by [facility] teleradiology service. The CT scanner at [facility] is accredited by the [employer] and the scans are performed using protocols designed to limit radiation exposure to as low as reasonably achievable to attain images of sufficient resolution adequate for diagnostic evaluation.
[2019-09-04] MEDS ORDERED: RANITIDINE HCL150 MG ORAL (22:16)
[2019-09-04] MEDS ORDERED: CEPHALEXIN500 MG ORAL (22:16)
[2019-09-04] MEDS ORDERED: ONDANSETRON ODT4 MG BC (22:16)
[2019-09-04] MEDS ORDERED: TYLENOL EXTRA500 MG ORAL (22:16)
[2019-09-04] MEDS ORDERED: PROMETHAZINE-D118 ML ORAL (22:35)
[2019-09-04 23:10] VITALS: BP 128/90
--- NOTE | 2019-09-04 23:10 | NUR ---
ER DISCHARGE NOTE: Patient is cleared to be discharged per ERMD, pt is aox4, on room air, with stable vital signs. pt was given dc and prescription instructions, pt was able to verbalize understanding, pt id band and iv site removed without complications. pt is able to ambulate with steady gait. pt took all belongings.
--- NOTE | 2019-09-04 23:15 | Emergency Room Report ---
History of Present Illness General Chief Complaint: Abdominal Pain Source: Patient Present Illness HPI 39-year-old female presents ED for evaluation. Complaining of abdominal pain and nausea x1 week. Pain is generalized, 8 out of 10, sharp, nonradiating. Denies vomiting. Denies fevers or chills. Denies diarrhea. No other aggravating relieving factors. Denies any other associated symptoms Allergies: Coded Allergies: No Known Allergies (Unverified , 11/29/14) Patient History Past Medical History: DM Past Surgical History: none Pertinent Family History: none Social History: Denies: smoking, alcohol use, drug use Now: No Immunizations: UTD Reviewed Nursing Documentation: PMH: Agreed; PSxH: Agreed Nursing Documentation-PMH Past Medical History: No History, Except For Hx Hypertension: No Hx Pacemaker: Yes Hx Asthma: No Hx COPD: No Hx Diabetes: Yes Hx Cancer: No Hx Gastrointestinal Problems: No Hx Dialysis: No Hx Neurological Problems: No Hx Cerebrovascular Accident: No Hx Seizures: Yes Review of Systems All Other Systems: negative except mentioned in HPI Physical Exam Vital Signs Date Time Temp Pulse Resp B/P (MAP) Pulse Ox O2 Delivery O2 Flow Rate FiO2 09/04/19 19:43 98.6 71 22 133/95 (108) 100 Room Air Sp02 EP Interpretation: reviewed, normal General Appearance: no apparent distress, alert, GCS 15, non-toxic Head: normocephalic, atraumatic Eyes: bilateral eye normal inspection, bilateral eye PERRL ENT: hearing grossly normal, normal pharynx, no angioedema, normal voice Neck: full range of motion, supple/symm/no masses Respiratory: chest non-tender, lungs clear, normal breath sounds, speaking full sentences Cardiovascular #1: regular rate, rhythm, no edema Cardiovascular #2: 2+ carotid (R), 2+ carotid (L), 2+ radial (R), 2+ radial (L) , 2+ dorsalis pedis (R), 2+ dorsalis pedis (L) Gastrointestinal: normal bowel sounds, soft, non-distended, no guarding, no rebound, tenderness Rectal: deferred Genitourinary: normal inspection, no CVA tenderness Musculoskeletal: back normal, normal range of motion, gait/station normal, non- tender Neurologic: alert, motor strength/tone normal, oriented x3, sensory intact, responsive, speech normal Psychiatric: judgement/insight normal, memory normal, mood/affect normal, no suicidal/homicidal ideation Reflexes: 3+ bicep (R), 3+ bicep (L), 3+ tricep (R), 3+ tricep (L), 3+ knee (R) , 3+ knee (L) Lymphatic: no adenopathy Medical Decision Making Diagnostic Impression: Primary Impression: Abdominal pain Qualified Codes: R10.84 - Generalized abdominal pain Additional Impression: UTI (urinary tract infection) Qualified Codes: N39.0 - Urinary tract infection, site not specified ER Course Hospital Course 39-year-old F presents to ED with abdominal pain, nausea Differential diagnosis includes-appendicitis, cholecystitis, small bowel obstruction, gastritis, Clinical course Patient placed on stretcher. After initial history and physical I ordered labs , IV fluids, pain medications and CT scan Labs - no leukocytosis, electrolytes ok, LFTs normal, UA + bacteria CT scan shows no acute pathology I discussed findings with the patient. On reassessment pain improved. Will discharge to home. Safe for discharge for close outpatient follow-up. States she has a PMD I feel this is a highly complex case requiring extensive working including EKG/ Rhythm strip, Xray/CT/US, Blood/urine lab work, repeat exams while in ED, and administration of strong opiates/narcotics for pain control, admission to hospital or close patient follow up. Diagnosis - abdominal pain, UTI Stable and discharged to home with Rx Tylenol, zofran,zantac, keflex. Followup with PMD. Return to ED if symptoms recur or worsen Labs Test 09/04/19 19:55 09/04/19 20:55 Urine Color Pale yellow Urine Appearance Clear Urine pH 6 (4.5-8.0) Urine Specific [place] 1.015 (1.005-1.035) Urine Protein Negative (NEGATIVE) Urine Glucose (UA) 1+ (NEGATIVE) Urine Ketones Negative (NEGATIVE) Urine Blood Negative (NEGATIVE) Urine Nitrite Negative (NEGATIVE) Urine Bilirubin Negative (NEGATIVE) Urine Urobilinogen Normal MG/DL (0.0-1.0) Urine Leukocyte Esterase 3+ (NEGATIVE) Urine RBC 2-4 /HPF (0 - 2) Urine WBC 5-10 /HPF (0 - 2) Urine Squamous Epithelial Cells Few /LPF (NONE/OCC) Urine Bacteria Moderate /HPF (NONE) Urine HCG, Qualitative Negative (NEGATIVE) White Blood Count 5.5 K/UL (4.8-10.8) Red Blood Count 4.27 M/UL (4.20-5.40) Hemoglobin 12.8 G/DL (12.0-16.0) Hematocrit 37.8 % (37.0-47.0) Mean Corpuscular Volume 88 FL (80-99) Mean Corpuscular Hemoglobin 29.9 PG (27.0-31.0) Mean Corpuscular Hemoglobin Concent 33.8 G/DL (32.0-36.0) Red Cell Distribution Width 9.9 % (11.6-14.8) Platelet Count 195 K/UL (150-450) Mean Platelet Volume 5.6 FL (6.5-10.1) Neutrophils (%) (Auto) 38.2 % (45.0-75.0) Lymphocytes (%) (Auto) 48.5 % (20.0-45.0) Monocytes (%) (Auto) 10.2 % (1.0-10.0) Eosinophils (%) (Auto) 1.5 % (0.0-3.0) Basophils (%) (Auto) 1.6 % (0.0-2.0) Sodium Level 127 MMOL/L (136-145) Potassium Level 4.2 MMOL/L (3.5-5.1) Chloride Level 98 MMOL/L (98-107) Carbon Dioxide Level 21 MMOL/L (21-32) Anion Gap 8 mmol/L (5-15) Blood Urea Nitrogen 9 mg/dL (7-18) Creatinine 0.9 MG/DL (0.55-1.30) Estimat Glomerular Filtration Rate > 60 mL/min (>60) Glucose Level 95 MG/DL (74-106) Calcium Level 8.2 MG/DL (8.5-10.1) Total Bilirubin 0.3 MG/DL (0.2-1.0) Aspartate Amino Transf (AST/SGOT) 16 U/L (15-37) Alanine Aminotransferase (ALT/SGPT) 16 U/L (12-78) Alkaline Phosphatase 70 U/L (46-116) Total Protein 6.8 G/DL (6.4-8.2) Albumin 3.4 G/DL (3.4-5.0) Globulin 3.4 g/dL Albumin/Globulin Ratio 1.0 (1.0-2.7) Lipase 180 U/L (73-393) CT/MRI/US Diagnostic Results CT/MRI/US Diagnostic Results : Imaging Test Ordered: CT A/P Impression Very mild dependent basilar atelectasis Nonobstructing left intrarenal stone Symmetric nephrograms without hydronephrosis or perinephric stranding Other abdominal solid organs, gallbladder and abdominal aorta appear within limits No bowel dilation or free air Moderate colonic stool without wall thickening or pericolonic inflammatory change Normal caliber appendix without secondary signs The bladder, left ovary and uterus appear within limits Right ovary not well distinguished from bowel Very small pelvic free fluid Last Vital Signs Date Time Temp Pulse Resp B/P (MAP) Pulse Ox O2 Delivery O2 Flow Rate FiO2 09/04/19 19:43 98.6 71 22 133/95 (108) 100 Room Air Status: improved Disposition: HOME, SELF-CARE Condition: Stable Scripts D-Methorphan Hb/Prometh Hcl* (PROMETHAZINE-DM SYRUP*) 118 Ml Syrup 5 ML ORAL Q6H PRN for For Cough, #118 ML 0 Refills Prov: Steve Mahoney MD 09/04/19 Ondansetron Odt* (ZOFRAN ODT*) 4 Mg Tab.rapdis 4 MG BC EVERY 6 HOURS PRN for Nausea & Vomiting, #20 TAB 0 Refills Prov: Steve Mahoney MD 09/04/19 Acetaminophen* (TYLENOL EXTRA STRENGTH*) 500 Mg Tablet 500 MG ORAL Q8H PRN for Prn Headache/Temp > 101, #30 TAB 0 Refills Prov: Steve Mahoney MD 09/04/19 Ranitidine Hcl* (ZANTAC*) 150 Mg Tablet 150 MG ORAL TWICE A DAY, #30 TAB Prov: Steve Mahoney MD 09/04/19 Cephalexin* (KEFLEX*) 500 Mg Capsule 500 MG ORAL EVERY 6 HOURS for 7 Days, CAP Prov: Steve Mahoney MD 09/04/19 Referrals: NOT CHOSEN IPA/,[facility]PC[facility] Instructions: Dysuria Steve Mahoney MD Sep 04, 2019 23:15
== END 2019-09-04 23:10 | disposition home or self-care (01) ==
LOC: EMR 19:58
DX: N39.0 Urinary tract infection, site not specified (principal); R10.84 Generalized abdominal pain; E11.9 Type 2 diabetes mellitus without complications; Z95.0 Presence of cardiac pacemaker; R11.0 Nausea
CPT/HCPCS: 36415; 74177; 80053; 81003; 81025; 83690; 85025; 87086; 96361; 96374; 96375; 99284; J2270; J2405; J7030; Q9967; S0028

== ENCOUNTER 2020-01-17 02:05 | Emergency (ER) | payer MEDICARE, MEDICAID ==
[~2020-01-17] VITALS: Ht 160 cm; Wt 68.5 kg
[~2020-01-17 02:05] MED LIST changes: +CEPHALEXIN500 MG ORAL; +PROMETHAZINE-D118 ML ORAL; +RANITIDINE HCL150 MG ORAL; +TYLENOL EXTRA500 MG ORAL
[2020-01-17] MEDS ORDERED: IBUPROFEN600 M1 ORAL (02:32)
[2020-01-17] MEDS ORDERED: ACETAMINOPHEN-1 EAC1 ORAL (02:32)
--- NOTE | 2020-01-17 02:39 | Emergency Room Report ---
History of Present Illness General Chief Complaint: Lower Extremity Injury Source: Patient Present Illness HPI Disclaimer: Please note that this report is being documented using [employer] technology. This can lead to erroneous entry secondary to incorrect interpretation by the dictating instrument. HPI: 39-year-old female presents for evaluation of right groin pain. 5 days ago the patient was moving some furniture and then worked out over the weekend. There is no worsening groin pain since yesterday in the afternoon. Pain is centered over the inner leg and groin. Denies bulging or mass. Exacerbated by abducting and abducting movements. Relieved by rest. Patient took 1 200 mg Motrin just prior to arrival with no improvement. Denies overlying skin changes or breakdown. Denies dysuria, hematuria. Denies abdominal pain, nausea , vomiting, diarrhea or recent constipation. Denies fever or chills. No other symptoms reported. PMH: Reviewed PSH: Reviewed Allergies: None reported Social Hx: Denies drug or alcohol abuse Allergies: Coded Allergies: No Known Allergies (Unverified , 11/29/14) COVID-19 Screening Contact w/high risk pt: No Recent Travel to affected area: No Experienced COVID-19 symptoms?: No COVID-19 Testing performed DUST COLLECTOR: No Patient History Last Menstrual Period: 2016, depo Now: No Nursing Documentation-PMH Past Medical History: No History, Except For Hx Hypertension: No Hx Pacemaker: Yes Hx Asthma: No Hx COPD: No Hx Diabetes: Yes Hx Cancer: No Hx Gastrointestinal Problems: No Hx Dialysis: No Hx Neurological Problems: No Hx Cerebrovascular Accident: No Hx Seizures: Yes Review of Systems All Other Systems: negative except mentioned in HPI Physical Exam Vital Signs Date Time Temp Pulse Resp B/P (MAP) Pulse Ox O2 Delivery O2 Flow Rate FiO2 01/17/20 02:13 98.1 90 22 136/84 (101) 97 Room Air General: Awake and alert, no acute distress HEENT: NC/AT. EOMI. Resp: Normal work of breathing Skin: Intact. No abrasions, laceration or rash over the exposed skin MSK: Normal tone and bulk. Moving all extremities. No obvious deformity. Tenderness palpation over the right inner groin without palpable defect, bulge or mass. No appreciable hernia. No overlying skin changes or breakdown. Particular tenderness over the abductor muscles and tendons Neuro: Awake and alert. Mentating appropriately Medical Decision Making Diagnostic Impression: Primary Impression: Strain of right groin ER Course 39-year-old female presents for evaluation of right groin pain. History and physical exam consistent with muscle and tendon strain in the right inner groin abductor muscles. No clinical evidence of hernia or abdominal wall defect. Otherwise well-appearing without signs of intra-abdominal pathology. Does not not require emergent imaging or labs at this time. Will treat with continued rest, cryotherapy, anti-inflammatories and breakthrough pain medication. Discussed limiting physical activity until symptoms are improved. He will follow-up with her PMD. Return to the emergency department new or worsening symptoms. Last Vital Signs Date Time Temp Pulse Resp B/P (MAP) Pulse Ox O2 Delivery O2 Flow Rate FiO2 01/17/20 02:13 98.1 90 22 136/84 (101) 97 Room Air Disposition: HOME, SELF-CARE Condition: Stable Scripts Acetaminophen With Codeine (T#3) (TYLENOL #3 TAB*) Y Tab 1 TAB ORAL Q8H PRN for For Pain, #20 TAB Prov: Haroon Ayala MD 01/17/20 Ibuprofen* (MOTRIN*) 600 Mg Tablet 600 MG ORAL Q6H PRN for For Pain, #30 TAB 0 Refills Prov: Haroon Ayala MD 01/17/20 Referrals: Ryan Calle [facility] Patient Instructions: Groin Strain, Cryotherapy Additional Instructions: Please follow-up with your primary care doctor in the next 1 to 3 days to discuss this emergency department visit and for reevaluation. If you have any new or worsening symptoms please return to the emergency department for reevaluation. Please note that this report is being documented using [employer] technology. This can lead to erroneous entry secondary to incorrect interpretation by the dictating instrument. Haroon Ayala MD January 17, 2020 02:39
[2020-01-17 02:40] VITALS: BP 136/84
== END 2020-01-17 02:40 | disposition home or self-care (01) ==
LOC: EMR 02:33
DX: S39.011A Strain of muscle, fascia and tendon of abdomen, initial encounter (principal); X58.XXXA Exposure to other specified factors, initial encounter; Y92.9 Unspecified place or not applicable; Z95.0 Presence of cardiac pacemaker; G40.909 Epilepsy, unspecified, not intractable, without status epilepticus; E11.9 Type 2 diabetes mellitus without complications
CPT/HCPCS: 99282